=== PATIENT | male | born 1990 | race Caucasian/White ===

== ENCOUNTER 2023-06-27 09:08 | Outpatient (OUT) | payer BC, SELFPAY ==
[2023-06-27 09:47] LABS: Basophils Absolute Auto 0.1 10^3/uL (0.0-0.1); Basophils Percent Auto 1.1 % (0.2-2.0); Eosinophils Absolute Auto 0.1 10^3/uL (0.0-0.7); Eosinophils Percent Auto 1.8 % (0.9-7.0); Hematocrit 41.1 % (42.0-54.0); Hemoglobin 13.2 g/dL (14.0-18.0); Immature Granulocytes Abs Auto 0.02 10^3/uL (0.00-0.03); Immature Granulocytes Pct Auto 0.4 % (0.0-0.5); Lymphocytes Absolute Auto 1.6 10^3/uL (1.2-3.8); Lymphocytes Percent Auto 28.9 % (20.5-60.0); Mean Corpuscular HGB Conc 32.1 g/dL (29.9-35.2); Mean Corpuscular Hemoglobin 26.5 pg (25.9-34.0); Mean Corpuscular Volume 82.4 fL (80.0-94.0); Mean Platelet Volume 10.3 fL (9.5-13.5); Monocytes Absolute Auto 0.6 10^3/uL (0.3-0.8); Neutrophils Absolute Auto 3.2 10^3/uL (1.4-6.5); Neutrophils Percent Auto 57.8 % (43.0-75.0); Platelet Count 316 10^3/uL (150-450); Red Blood Count 4.99 10^6/uL (4.70-6.10); Red Cell Distribution Width 14.1 % (11.0-15.0); White Blood Count 5.5 10^3/uL (4.0-11.0)
[2023-06-27 10:30] LABS: Estimated Average Glucose 120 mg/dL; Glycohemoglobin A1C 5.8 % (4.5-6.2)
[2023-06-27 11:50] LABS: Alanine Aminotransferase 38 U/L (16-63); Albumin Level 3.9 g/dL (3.4-5.0); Alkaline Phosphatase 67 U/L (46-116); Anion Gap 14.1; Aspartate Amino Transferase 18 U/L (15-37); BUN Creatinine Ratio 14.7; Bilirubin Direct 0.1 mg/dL (0.0-0.2); Bilirubin Total 0.5 mg/dL (0.2-1.0); Calcium 9.5 mg/dL (8.5-10.1); Carbon Dioxide 26.4 mmol/L (21.0-32.0); Chloride 105 mmol/L (98-107); Chol HDL Ratio 5.7; Cholesterol 228 mg/dL (<=200); Estimated GFR (African America >60 (>=60); Estimated GFR (Non-African Ame >60 (>=60); Globulin 3.8 g/dL; Glucose 100 mg/dL (74-106); HDL Cholesterol 40 mg/dL (40-60); Potassium 4.5 mmol/L (3.5-5.1); Sodium 141 mmol/L (136-145); Thyroid Stimulating Hormone 1.138 uIU/mL (0.358-3.740); Total Protein 7.7 g/dL (6.4-8.2); Triglycerides 116 mg/dL (<=150); VLDL CHOLESTEROL 23.2 mg/dL
== END 2023-06-27 09:09 | disposition home or self-care (01) ==
PROVIDERS: PCP Family Medicine; Visit Provider Family Medicine
DX: Z00.00 Encounter for general adult medical examination without abnormal findings (principal)
CPT/HCPCS: 36415; 80048; 80061; 80076; 83036; 84443; 85025

== ENCOUNTER 2024-05-04 08:05 | Outpatient (OUT) | payer BC, SELFPAY ==
--- OUTSIDE RECORDS SUMMARY | 2024-05-04 08:12 | XMS_ITS | CCD ---
Author Organization [facility] Care Team Providers Care 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 Name Role Phone JENIFER, DR REYNAGA Admitting Unavailable TIMMIS, DR REYNAGA Attending Unavailable NADEREGely, DR MEHUL Pereira Primary Care Unavailable TIMMIS, DR REYNAGA Consulting Unavailable WEST, DR JUAN Bradley Consulting Unavailable TIMMIS, DR REYNAGA Admitting Unavailable TIMMIS, DR REYNAGA Attending Unavailable NADERER, DR MEHUL Pereira Primary Care Unavailable TIMMIS, DR REYNAGA Consulting Unavailable GRILLIVanna, DR OLINDA Galicia Admitting Unavailyuly e MIGUELITO, DR OLINDA Galicia Attending Unavailyuly ROSAS, DR MEHUL Pereira Primary Care Unavailable GRILLIVanna, DR OLINDA Galicia Consulting Unavailabl e AGUBOSIM, [place] Consulting Unavailable DORKOSKIE, JORGE Consulting Unavailable TIMMIS, DR REYNAGA Admitting Unavailable TIMMIS, DR REYNAGA Attending Unavailable NADEREGely, DR MEHUL Pereira Primary Care Unavailable TIMMIS, DR REYNAGA Consulting Unavailable HI, JASEN Consulting Unavailable NORAH, NITHYA Consulting Unavailable FILUTZE, LINSEY Consulting Unavailable MIGUELITO, DR OLINDA Galicia Admitting Unavailyuly e MIGUELITO, DR OLINDA Galicia Attending Unavailyuly ROSAS, DR MEHUL Pereira Primary Care Unavailable RALPH, MEHUL Attending Unavailable RALPH, MEHUL Attending Unavailable Mehul Rosas MD Primary Care Provider Mehul Rosas Primary Care Unavailable Jag Nolasco Attending Unavailable Jag Nolasco Admitting Unavailable Medications Current Medications Medication Drug Class(es) Dates Sig (Normalized) Sig (Original) cholecalciferol 0.05 mg oral tablet (6 sources) Vitamin D Start: 04-09-2023 take 1 tablet by mouth once daily cholecalciferol (Vitamin D-3) 50 MCG (1999) tablet Indications: Vitamin D deficiency TAKE 1 TABLET BY MOUTH EVERY DAY 90 tablet 5 04/09/2023 Active dicyclomine hydrochloride 20 mg oral tablet (8 sources) Anticholinergic Start: 05-04-2024 dicyclomine (Bentyl) 20 MG tablet Indications: Irritable bowel syndrome with diarrhea Take 1 tablet (20 mg) by mouth in the morning and 1 tablet (20 mg) at noon and 1 tablet (20 mg) in the evening and 1 tablet (20 mg) before bedtime. Take before meals. 120 tablet 5 05/04/2024 Active Start: 05-04-2024 dicyclomine (B entyl) 20 MG tablet Indications: Irritable bowel syndrome with diarrhea Take 1 tablet (20 mg) by mouth in the morning and 1 tablet (20 mg) at noon and 1 tablet (20 mg) in the evening and 1 tablet (20 mg) before bedtime. Take before meals. 120 tablet 5 05/04/2024 Active End: 05-04-2024 dicyclomine (Bentyl) 20 MG t ablet Take 20 mg by mouth in the morning and 20 mg at noon and 20 mg in the evening and 20 mg before bedtime. Take before meals. 05/04/2024 Discontinued (Reorder) fluticasone propionate 0.05 mg/actuat metered dose nasal spray (6 sources) Corticosteroid take 2 spray(s) nasal route in the morning fluticasone (Flonase) 50 MCG/ACT nasal spray Administer 2 sprays into each nostril in the morning. Shake gently. Before first use, prime pump. After use, clean tip and replace cap.. Active lisinopril 20 mg oral tablet (6 sources) Angiotensin Converting Enzyme Inhibitor Start: 04-28-19 24 take 1 tablet by mouth twice daily lisinopril 20 MG tablet Indications: Essential (primary) hypertension (CMS/HCC) , Benign essential hypertension (CMS/HCC) TAKE 1 TABLET BY MOUTH TWICE A DAY 180 tablet 3 04/28/2023 Active omeprazole 40 mg delayed release oral capsule (6 sources) Proton Pump Inhibitor Start: 07-06-19 take 1 capsule by mouth twice daily omeprazole (PriLOSEC) [address] capsule Indications: Irritable bowel syndrome with diarrhea TAKE 1 CAPSULE BY MOUTH TWICE A DAY 180 capsule 3 07/06/2023 Active tiZANidine 4 mg oral tablet (6 sources) Central alpha-2 Adrenergic Agonist Start: 02-21-20 24 take 1 tablet by mouth every six hours as needed tiZANidine (Zanaflex) 4 MG tablet Take 4 mg by mouth every 6 (six) hours if needed 04/22/2023 Active Problems Active Problems Problem Classification Problem Date Documented Da te Episodic/Chronic Disorders of lipid metabolism (6 sources) Dyslipidemia; Translations: [Hyperlipidemia, unspecified] Onset: 05-18-2023 05-18-2023 Chronic Esophageal disorders (13 sources) Gastro-esophageal reflux disease without esophagitis; Translations: [Banuelos's esophagus without dysplasia] Onset: 09-18-2021 Chronic Essential hypertension (11 sources) Essential (primary) hypertension; Translations: [Benign essential hypertension] Onset: 04-08-2022 05-18-2023 Chronic Gastritis and duodenitis (1 source) Unspecified chronic gastritis without bleeding; Translations: [UNS CHRONIC GASTRITIS W/O BLEEDING] Onset: 09-23-2021 Chronic Nutritional deficiencies (6 sources) Vitamin D deficiency; Translations: [Vitamin D deficiency, unspecified] Onset: 05-18-2023 05-18-2023 Chronic Other gastrointestinal disorders (1 source) Irritable bowel syndrome without diarrhea; Translations: [IRRITABLE BOWEL SYND W/O DIARRHEA] Onset: 09-23-2021 Chronic Other gastrointestinal disorders (10 sources) Irritable bowel syndrome with diarrhea; Translations: [Irritable bowel syndrome with diarrhea] Onset: 05-18-2023 05-18-2023 Chronic Other male genital disorders (1 source) Male infertility, unspecified; Translations: [Male infertility, unspecified] Onset: 02-19-2024 Episodic Other upper respiratory disease (8 sources) Allergic rhinitis due to pollen; Translations: [Allergic rhinitis due to pollen] Onset: 05-18-2023 05-18-2023 Chronic Other upper respiratory disease (5 sources) Deviated nasal septum; Translations: [DEVIATED NASAL SEPTUM] Onset: 03-31-2022 Episodic Other upper respiratory disease (1 source) Hypertrophy of nasal turbinates; Translations: [HYPERTROPHY OF NASAL TURBINATES] Onset: 04-08-2022 Episodic Other upper respiratory disease (1 source) Cyst and mucocele of nose and nasal sinus; Translations: [CYST AND MUCOCELE NOSE AND NASAL SINUS] Onset: 04-08-2022 Episodic Other upper respiratory infections (1 source) Chronic sinusitis, unspecified; Translations: [CHRONIC SINUSITIS UNSPECIFIED] Onset: 04-08-2022 Chronic Residual codes; unclassified (1 source) Obstructive sleep apnea (adult) (pediatric); Translations: [OBSTRUCTIVE SLEEP APNEA] Onset: 04-08-2022 Chronic Residual codes; unclassified (8 sources) Obstructive sleep apnea syndrome; Translations: [Obstructive sleep apnea (adult) (pediatric)] Onset: 05-18-2023 05-18-2023 Chronic Unclassified (1 source) PERSONAL HISTORY OF COVID-19; Translations: [PERSONAL HISTORY OF COVID-19] Onset: 04-08-2022 Unclassified (1 source) CONTACT W/AND (SUSP) EXPOS COVID-19; Translations: [CONTACT W/AND (SUSP) EXPOS COVID-19] Onset: 03-31-2022 Past or Other Problems Problem Classification Problem Date Documented Da te Episodic/Chronic Other aftercare (1 source) Other long-term (current) drug therapy; Translations: [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] Onset: 09-23-2021 Episodic Other non-traumatic joint disorders (6 sources) Pain in right knee; Translations: [Pain in joint, lower leg] Onset: 05-18-2023 05-18-2023 Episodic Other upper respiratory disease (4 sources) Other specified disorders of nose and nasal sinuses; Translations: [OTH SPEC D/O NOSE NASAL SINUSES] Onset: 11-30-2021 Episodic Other upper respiratory infections (6 sources) Acute pansinusitis; Translations: [Acute pansinusitis, unspecified] Onset: 05-18-2023 Resolved: 11-04-2023 05-18-2023 Episodic Screening and history of mental health and substance abuse codes (6 sources) Patient encounter status; Translations: [Encounter for autism screening] Onset: 05-18-2023 05-18-2023 Episodic Results Test Name Value Interpretation Reference Range Facil ity Semen Analysis, Fertilityon 02-19-2024 Debris/Round Cells None Normal [facility] Comment on above: Order Comment: Eric d of Collection:: Masturbation Has the patient had a vasectomy?: N Type of Specimen Container:: Sterile Container Abstinence Period:: 2 DAYS Kept at body temperature?: Y Any Collection or Transport Problems?: N Performed By: #### S EMCOMP #### [facility] [address] [place] [address] [place] Immotile Sperm 43 % Normal [facility] Comment on above: Order Comment: Metho d of Collection:: Masturbation Has the patient had a vasectomy?: N Type of Specimen Container:: Sterile Container Abstinence Period:: 2 DAYS Kept at body temperature?: Y Any Collection or Transport Problems?: N Performed By: #### S EMCOMP #### [facility] [address] [place] [address] [place] Non-Progression Sperm Motili 8 % Normal [facility] Comment on above: Order Comment: Metho d of Collection:: Masturbation Has the patient had a vasectomy?: N Type of Specimen Container:: Sterile Container Abstinence Period:: 2 DAYS Kept at body temperature?: Y Any Collection or Transport Problems?: N Performed By: #### S EMCOMP #### [facility] [address] Normal Sperm Morphology 10.0 % Normal >=4.0 [facility] Comment on above: Order Comment: Metho d of Collection:: Masturbation Has the patient had a vasectomy?: N Type of Specimen Container:: Sterile Container Abstinence Period:: 2 DAYS Kept at body temperature?: Y Any Collection or Transport Problems?: N Performed By: #### S EMCOMP #### [place] [address] [place] Rapid Progression Sperm Motili 49 % Normal [facility] Comment on above: Order Comment: Metho d of Collection:: Masturbation Has the patient had a vasectomy?: N Type of Specimen Container:: Sterile Container Abstinence Period:: 2 DAYS Kept at body temperature?: Y Any Collection or Transport Problems?: N Performed By: #### S EMCOMP #### [facility] [address] [place] [address] [place] Semen Appearance Normal Normal Normal [facility] Comment on above: Order Comment: Metho d of Collection:: Masturbation Has the patient had a vasectomy?: N Type of Specimen Container:: Sterile Container Abstinence Period:: 2 DAYS Kept at body temperature?: Y Any Collection or Transport Problems?: N Performed By: #### S EMCOMP #### [address] Semen Comment . Normal [facility] Comment on above: Order Comment: Metho d of Collection:: Masturbation Has the patient had a vasectomy?: N Type of Specimen Container:: Sterile Container Abstinence Period:: 2 DAYS Kept at body temperature?: Y Any Collection or Transport Problems?: N Result Comment: No A bnormal specimen characteristics noted. PERFORMED BY: [place] [address] PATHOLOGIST PROCUREMENT DIRECTOR PURVI SWEET M.D. Performed By: #### S EMCOMP #### [address] Semen Liquefaction Normal Normal <=60 min [facility] Comment on above: Order Comment: Metho d of Collection:: Masturbation Has the patient had a vasectomy?: N Type of Specimen Container:: Sterile Container Abstinence Period:: 2 DAYS Kept at body temperature?: Y Any Collection or Transport Problems?: N Performed By: #### S EMCOMP #### [address] Semen pH 8.0 Normal >=7.2 [facility] Comment on above: Order Comment: Metho d of Collection:: Masturbation Has the patient had a vasectomy?: N Type of Specimen Container:: Sterile Container Abstinence Period:: 2 DAYS Kept at body temperature?: Y Any Collection or Transport Problems?: N Performed By: #### S EMCOMP #### [address] Semen Viscosity Normal Normal Normal [facility] Comment on above: Order Comment: Metho d of Collection:: Masturbation Has the patient had a vasectomy?: N Type of Specimen Container:: Sterile Container Abstinence Period:: 2 DAYS Kept at body temperature?: Y Any Collection or Transport Problems?: N Performed By: #### S EMCOMP #### [address] Semen Volume 3.0 mL Normal >=1.5 [facility] Comment on above: Order Comment: Metho d of Collection:: Masturbation Has the patient had a vasectomy?: N Type of Specimen Container:: Sterile Container Abstinence Period:: 2 DAYS Kept at body temperature?: Y Any Collection or Transport Problems?: N Performed By: #### S EMCOMP #### [facility] [address] Sperm Concentration 65.0 Normal >=15 [facility] Comment on above: Order Comment: Metho d of Collection:: Masturbation Has the patient had a vasectomy?: N Type of Specimen Container:: Sterile Container Abstinence Period:: 2 DAYS Kept at body temperature?: Y Any Collection or Transport Problems?: N Performed By: #### S EMCOMP #### [address] Total Motility (CA+EPIC WILLOW SPECIALIST) 57.0 % Normal >=40 (CA+EPIC WILLOW SPECIALIST) [facility] Comment on above: Order Comment: Metho d of Collection:: Masturbation Has the patient had a vasectomy?: N Type of Specimen Container:: Sterile Container Abstinence Period:: 2 DAYS Kept at body temperature?: Y Any Collection or Transport Problems?: N Performed By: #### S EMCOMP #### [address] WBC Concent, Semen <1.0 Normal <1.0 [facility] Comment on above: Order Comment: Metho d of Collection:: Masturbation Has the patient had a vasectomy?: N Type of Specimen Container:: Sterile Container Abstinence Period:: 2 DAYS Kept at body temperature?: Y Any Collection or Transport Problems?: N Performed By: #### S EMCOMP #### [facility] [address] [place] [address] [place] CBC AUTO DIFFon 03-28-2022 BASO # 0.1 103/ul Normal 0.0-0.1 [facility] Comment on above: Performed By: #### C BC #### [facility] [address] [address] [address] Luz Marina Obregon Basophils/100 WBC (Bld) 0.6 % Normal 0.2-2.0 [facility] Comment on above: Performed By: #### C BC #### [facility] [address] [place] [address] Dr. Luz Marina Obregon EO # 0.1 103/ul Normal 0.0-0.7 [facility] Comment on above: Performed By: #### C BC #### [facility] [address] [place] [address] Dr. Luz Marina Obregon Eosinophils/100 WBC (Bld) 1.3 % Normal 0.9-7.0 [facility] Comment on above: Performed By: #### C BC #### [facility] [address] [place] [address] Dr. Luz Marina Obregon Erythrocyte distribution width (RBC) [Ratio] 13.1 % Normal 11.0-15.0 [facility] Comment on above: Performed By: #### C BC #### [facility] [address] [place] [address] Dr. Luz Marina Obregon Hematocrit (Bld) [Volume fraction] 40.1 % Critically low 42.0-54.0 [facility] Comment on above: Performed By: #### C BC #### [facility] [address] [place] [address] Dr. Luz Marina Obregon Hemoglobin (Bld) [Mass/Vol] 14.5 g/dL Normal 14.0-18.0 [facility] Comment on above: Performed By: #### C BC #### [facility] [address] [place] [address] Dr. Luz Marina Obregon IG # 0.03 10e3/ul Normal 0.00-0.03 [facility] Comment on above: Performed By: #### C BC #### [facility] [address] [place] [address] Dr. Luz Marina Obregon IG % 0.4 % Normal 0.0-0.5 [facility] Comment on above: Performed By: #### C BC #### [facility] [address] [place] [address] Dr. Luz Marina Obregon LYMPH # 1.9 103/ul Normal 1.2-3.8 [facility] Comment on above: Performed By: #### C BC #### [facility] [address] [place] [address] Dr. Luz Marina Obregon Lymphocytes/100 WBC (Bld) 24.9 % Normal 20.5-60.0 [facility] Comment on above: Performed By: #### C BC #### [facility] [address] [place] [address] Dr. Luz Marina Obregon MANUAL DIFF REQ NO Normal [facility] Comment on above: Performed By: #### C BC #### [facility] [address] [place] [address] Dr. Luz Marina Obregon MCH (RBC) [Entitic mass] 28.4 pg Normal 25.9-34.0 [facility] Comment on above: Performed By: #### C BC #### [facility] [address] [place] [address] Dr. Luz Marina Obregon MCHC (RBC) [Mass/Vol] 36.2 g/dL Critically high 29.9-35.2 [facility] Comment on above: Performed By: #### C BC #### [facility] [address] [place] [address] Dr. Luz Marina Obregon MCV (RBC) [Entitic vol] 78.5 fL Critically low 80.0-94.0 [facility] Comment on above: Performed By: #### C BC #### [facility] [address] [place] [address] Dr. Luz Marina Obregon MONO # 0.6 103/ul Normal 0.3-0.8 [facility] Comment on above: Performed By: #### C BC #### [facility] [address] [place] [address] Dr. Luz Marina Obregon Monocytes/100 WBC (Bld) 7.8 % Normal 1.7-12.0 [facility] Comment on above: Performed By: #### C BC #### [facility] [address] [place] [address] Dr. Luz Marina Obregon NEUT # 5.0 103/ul Normal 1.4-6.5 [facility] Comment on above: Performed By: #### C BC #### [facility] [address] [address] [address] Luz Marina Obregon Neutrophils/100 WBC (Bld) 65.0 % Normal 43.0-75.0 [facility] Comment on above: Performed By: #### C BC #### [facility] [address] [place] [address] Dr. Luz Mraina Obregon Platelet mean volume (Bld) [Entitic vol] 9.5 fL Normal 9.5-13.5 [facility] Comment on above: Performed By: #### C BC #### [facility] [address] [place] [address] Dr. Luz Marina Obregon PLT 284 103/ul Normal 150-450 [facility] Comment on above: Performed By: #### C BC #### [facility] [address] [place] [address] Dr. Luz Marina Obregon RBC 5.11 106/ul Normal 4.70-6.10 [facility] Comment on above: Performed By: #### C BC #### [facility] [address] [place] [address] Dr. Luz Marina Obregon WBC 7.7 103/ul Normal 4.0-11.0 [facility] Comment on above: Performed By: #### C BC #### [facility] [address] [place] [address] Dr. Luz Marina Obregon Covid-19 PCR (CVDTB)on 03-03 SARS-CoV-2 (COVID-19) RNA MARY KAY+probe Ql (Unsp spec) Not detected Normal NOT DETECTED [facility] Comment on above: Result Comment: This test is not yet approved or cleared by the [place] FDA. When there are no FDA-approved or cleared tests available, and other criteria are met, FDA can make tests available under an emergency access mechanism called an Emergency Use Authorization (EUA). The EUA for this test is supported by the [place] of Health and Human Service's (HHS's) declaration that circumstances exist to justify the emergency use of in vitro diagnostics for the detection and/or diagnosis of the virus that causes COVID-19. This EUA will remain in effect (meaning this test can be used) for the duration of the COVID-19 declaration justifying emergency of IVDs, unless it is terminated or revoked by FDA (after which the test may no longer be used). When diagnostic testing is negative, the possibility of a false negative should be considered in the context of a patient's recent exposures and the presence of clinical signs and symptoms consistent with SARS-CoV-2. Performed By: #### C VDTBH #### [facility] [address] [place] [address] Dr. Luz Marina Obregon PROTIMEon 03-28-2022 INR Coag (PPP) [Relative time] 0.95 {INR} Normal [facility] Comment on above: Performed By: #### P TT, PT #### [facility] [address] [place] [address] Dr. Luz Marina Obregon INR GUIDELINES SEE BELOW Normal [facility] Comment on above: Result Comment: SHERLEY RED INR: 2.0 - 3.0 CONDITIONS NOT LISTED BELOW 2.5 - 3.5 FOR PROSTHETIC HEART VALVE REPLACEMENT 2.5 - 3.5 RECURRENT THROMBOSIS Performed By: #### P TT, PT #### [facility] [address] [place] [address] Dr. Luz Marina Obregon PT Coag (PPP) [Time] 10.1 s Normal 9.0-11.6 [facility] Comment on above: Performed By: #### P TT, PT #### [facility] [address] [place] [address] Dr. Luz Marina Obregon PTTon 03-28-2022 aPTT Coag (Bld) [Time] 29.9 s Normal 22.3-36.2 [facility] Comment on above: Performed By: #### P TT, PT #### [facility] [address] [place] [address] [address] SINUSES WO CONon 12-02-19 CT SINUSES WO CON EXAMINATION: CT SINUSES WO CON HISTORY: Disorder of the nose COMPARISON: No relevant comparison available. TECHNIQUE: Axial and Coronal CT images were created without IV contrast. Dose reduction techniques were achieved by using automated exposure control and/or adjustment of mA and/or kV according to patient size and/or use of iterative reconstruction technique. FINDINGS: MAXILLARY SINUSES: 2.9 x 2.1 x 4.1 cm lobular soft tissue in the inferior right maxillary sinus and 1.9 x 1.8 x 3.3 cm lobular soft tissue in the inferior left maxillary sinus. ETHMOID SINUSES: No significant mucosal thickening or fluid. Fovea ethmoidali and lamina papyracea are symmetric and intact. SPHENOID SINUSES: No significant mucosal thickening or fluid. Sphenoethmoidal recesses are patent. No bony dehiscence. FRONTAL SINUSES: No significant mucosal thickening or fluid. Frontal recesses are patent. NASAL FOSSA: 4 mm rightward deviation of the nasal septum. No isabel bullosa or paradoxical turbinates are identified. OTHER: Negative. Limited views of the skull base and orbits are unremarkable. IMPRESSION: Bilateral inferior maxillary lobular soft tissue lesions, mucous retention cysts are suspected. This does not result in occlusion of the ostiomeatal units. 4 mm rightward deviation of the nasal septum Electronically authenticated by: JUAN MIRANDA Date: 2021-12-01 11:41 Normal [facility] H PYLORI TISSUEon 09-18-2021 H PYL TISSUE, UREASE Negative Normal NEGATIVE [facility] Comment on above: Performed By: #### H PYLT #### [facility] [address] [place] [address] Dr. Luz Marina Obregon Vital Signs Date Time Vital Sign Value Performing Clinician Faci lity 05-04-2024 07:140500 Body height 182.9 cm Mehul Rosas MD Work Phone: [facility] 05-04-2024 07:14-0500 Body mass index (BMI) [Ratio] 34.99 kg/m2 Mehul Rosas MD Work Phone: [facility] 05-04-2024 07:14-0500 Body temperature 97.5 [degF] Mehul Rosas MD Work Phone: [facility] 05-04-2024 07:14-0500 Body weight 117.03 kg Mehul Rosas MD Work Phone: [facility] 05-04-2024 07:14-0500 Diastolic blood pressure 78 mm[Hg] Mehul Rosas MD Work Phone: [facility] 05-04-2024 07:14-0500 Heart rate 105 /min Mehul Rosas MD Work Phone: [facility] 05-04-2024 07:14-0500 Respiratory rate 18 /min Mehul Rosas MD Work Phone: [facility] 05-04-2024 07:14-0500 SaO2% (BldA) [Mass fraction] 97 % Mehul Rosas MD Work Phone: [facility] 05-04-2024 07:14-0500 Systolic blood pressure 134 mm[Hg] Mehul Rosas MD Work Phone: [facility] 11-04-2023 07:51-0400 Body height 182.9 cm Mehul Rosas MD Work Phone: [facility] 11-04-2023 07:51-0400 Body mass index (BMI) [Ratio] 35.13 kg/m2 Mehul Rosas MD Work Phone: [facility] 11-04-2023 07:51-0400 Body temperature 97.5 [degF] Mehul Rosas MD Work Phone: [facility] 11-04-2023 07:51-0400 Body weight 117.48 kg Mehul Rosas MD Work Phone: [facility] 11-04-2023 07:51-0400 Diastolic blood pressure 78 mm[Hg] Mehul Rosas MD Work Phone: [facility] 11-04-2023 07:51-0400 Heart rate 85 /min Mehul Rosas MD Work Phone: [facility] 11-04-2023 07:51-0400 Respiratory rate 18 /min Mehul Rosas MD Work Phone: [facility] 11-04-2023 07:51-0400 SaO2% (BldA) [Mass fraction] 96 % Mehul Rosas MD Work Phone: [facility] 11-04-2023 07:51-0400 Systolic blood pressure 130 mm[Hg] Mehul Rosas MD Work Phone: [facility] Encounters Encounter Date Encounter Type Care Provider Facility Start: 05-04-2024 End: 05-04-2024 Bamboo flowsheet Mehul Rosas MD Work Phone: [facility] Start: 05-04-2024 End: 05-04-2024 Bamboo flowsheet Mehul Rosas MD Work Phone: [facility] Start: 05-04-2024 End: 05-04-2024 Patient encounter procedure Mehul Rosas MD Work Phone: [facility] Work Phone: Start: 05-04-2024 End: 05-04-2024 Periodic preventive med est patient 18-39 yrs Mehul Rosas MD Work Phone: [facility] Comment on above: Annual physical exam (Primary Dx); Essential hypertension, benign (CMS/HCC); Irritable bowel syndrome with diarrhea Start: 02-19-2024 End: 02-19-2024 ambulatory Mehul Rosas Facility:[facility] Start: 11-04-2023 End: 11-04-2023 Bamboo flowsheet Mehul Rosas MD Work Phone: [facility] Start: 11-04-2023 End: 11-04-2023 Bamboo flowsheet Mehul Rosas MD Work Phone: [facility] Start: 11-04-2023 End: 11-04-2023 Office outpatient visit 25 minutes Mehul Rosas MD Work Phone: [facility] Comment on above: Essential hypertensi on, benign (CMS/HCC) (Primary Dx); Irritable bowel syndrome with diarrhea; Banuelos's esophagus without dysplasia; Seasonal allergic rhinitis due to pollen; Obstructive sleep apnea Start: 11-04-2023 End: 11-04-2023 ambulatory MEHUL ROSAS Not Available Start: 05-18-2023 End: 05-18-2023 ambulatory MEHUL ROSAS Not Available Start: 05-18-2023 Patient encounter procedure Mehul Rosas MD Work Phone: [facility] Start: 04-01-2022 End: 04-01-[address] LINH FERRER Facility:[facility] Start: 03-31-2022 Encounter for preprocedural laboratory examination DR LINH FERRER [facility] Start: 03-28-2022 End: 03-29-[address] LINH FERRER Facility:[facility] Start: 03-28-2022 End: 03-29-2022 Encounter for preprocedural laboratory examination DR LINH FERRER Facility:[facility] Start: 11-30-2021 End: 12-01-[address] LINH FERRER Facility:[facility] Start: 09-18-2021 End: 09-18-[address] OLINDA FARLEY Facility:[facility] Start: 09-14-[address] OLINDA FARLEY Fa cility:[facility] Plan of Treatment Date Care Activity Detail Author Start: 11-04-2024 End: 11-04-2024 Patient encounter procedure 11/04/2024 9:00 AM EDT Office Visit [facility] [address] [place] [phone] Mehul Rosas MD [address] [place] [id number] [facility] Start: 05-04-2024 End: 05-04-2025 Basic metabolic 1998 panel - Serum or Plasma Basic metabolic panel Lab Routine Annual physical exam Expected: 05/04/2024 (Approximate), Expires: 05/04/2025 [facility] Comment on above: Expected: 05/04/2024 (Approximate), Expires: 05/04/2025 Start: 05-04-2024 End: 05-04-2025 CBC W Auto Differential panel - Blood CBC and differential Lab Routine Annual physical exam Expected: 05/04/2024 (Approximate), Expires: 05/04/2025 [facility] Comment on above: Expected: 05/04/2024 (Approximate), Expires: 05/04/2025 Start: 05-04-2024 End: 05-04-2025 Hemoglobin A1c/Hemoglobin.total in Blood Hemoglobin A1c Lab Routine Annual physical exam Expected: 05/04/2024 (Approximate), Expires: 05/04/2025 [facility] Work Phone: Comment on above: Expected: 05/04/2024 (Approximate), Expires: 05/04/2025 Start: 05-04-2024 End: 05-04-2025 Hepatic function 2000 panel - Serum or Plasma Hepatic function panel Lab Routine Annual physical exam Expected: 05/04/2024 (Approximate), Expires: 05/04/2025 [facility] Comment on above: Expected: 05/04/2024 (Approximate), Expires: 05/04/2025 Start: 05-04-2024 End: 05-04-2025 Lipid 1996 panel - Serum or Plasma Lipid panel Lab Routine Annual physical exam Expected: 05/04/2024 (Approximate), Expires: 05/04/2025 [facility] Comment on above: Expected: 05/04/2024 (Approximate), Expires: 05/04/2025 Start: 05-04-2024 End: 05-04-2025 Thyrotropin [Units/volume] in Serum or Plasma TSH Lab Routine Annual physical exam Expected: 05/04/2024 (Approximate), Expires: 05/04/2025 [facility] Comment on above: Expected: 05/04/2024 (Approximate), Expires: 05/04/2025 Start: 05-04-2024 End: 05-04-2024 Patient encounter procedure 05/04/2024 7:00 AM EST Office Visit [facility] [address] [place] [address] Mehul Rosas MD [address] [place] [id number] [facility] Start: 11-04-2023 End: 11-04-2023 Patient encounter procedure 11/04/2023 7:45 AM EDT Office Visit [facility] [address] [place] [address] Mehul Rosas MD [address] [place] [address] Arrived [facility] Comment on above: Arrived Start: 11-01-2023 Influenza vaccination Influenza Vacc ine (#1) [facility] Immunizations Immunization Date Immunization Notes Care Provider Fa cility 12-19-2022 Influenza, injectabl e, Madin Paullina Canine Kidney, preservative free, quadrivalent Mehul Rosas MD Work Phone: [facility] 12-19-2022 influenza virus vacc ine, unspecified formulation Mehul Rosas MD Work Phone: [facility] Payers Date Payer Category Payer Self-pay 2022 [facility] Blue Shield [id number] 2022 Unknown BCBS BCBS xxxxxx [id number] 2022-Present [phone] [address] [place] [address] [id number] 1990 Unknown [id number] 1990 Unknown [id number] 1990 Unknown [id number] 1990 Unknown [id number] 1990 Unknown [id number] [id number] 1990 Unknown [id number] [id number] 1990 Unknown [id number] 1959 Unknown [id number] Unknown [id number] Social History Date Type Detail Facility Start: 05-18-2023 Tobacco smoking status NHIS Never sm oked tobacco [facility] Start: 05-18-2023 Tobacco use and exposure Smoke less tobacco non-user [facility] Start: 05-17-2023 End: 05-04-2024 History of Social function [facility] Start: 05-17-2023 End: 05-04-2024 Social connection and isolation panel [facility] Do you belong to any clubs or organizations such as christian groups, unions, fraternal or athletic groups, or school groups? Yes [facility] Are you now , , , , never or living with a partner? [facility] How often to you hav e a drink containing alcohol? Never [facility] How many standard dr inks containing alcohol do you have on a typical day? Patient does not drink [facility] Do you feel stress - tense, restless, nervous, or anxious, or unable to sleep at night because your mind is troubled all the time - these days [OSQ] Only a little [facility] (I/We) worried wheth er (my/our) food would run out before (I/we) got money to buy more. Never true [facility] In the past 12 month s, was there a time when you were not able to pay the mortgage or rent on time? No [facility] Start: 1990 Sex assigned at Not on file [facility] History of Present illness Narrative 05-04-2024 Mehul Rosas MD - 05/04/2024 7:32 AM Ale Rosas MD - 05/04/2024 7:32 AM Ale Rosas MD - 05/04/2024 7:00 AM EST Note Date & Type Note Facility 05-04-2024 History of Presen t illness Narrative Associated Problem(s): Essential hypertension, benign (CMS/HCC) BP controlled and monitor PRN. Associated Problem(s): Annual physical exam Due for labs. Discussed proper diet and regular aerobic exercise. Need aerobic exercise 5-6 days a week for 30 minutes at a time. Smaller portions and limit total calories. Colonoscopy after age 45. Tetanus every 10 years. Advised not to smoke. Images from the original note were not included. Subjective Patient ID: Amor Barrera is a 33 y.o. male who presents for Follow-up. Presents for annual PE. Patient feels well today. Weight unchanged over the past year. Recently resumed activity and returned to the gym. Tries to stay active and exercise several days a week. Tries to watch diet and eat healthy. Increased fruits and vegetables. Smaller portions and limits snacking. Tries to limit total daily calories. Due for labs. Checking BP PRN and typically controlled. BP normal today. Taking medication daily and tolerating without side effects. Review of Systems Constitutional: Negative for fatigue. Respiratory: Negative for cough, shortness of breath and wheezing. Cardiovascular: Negative for chest pain and palpitations. Gastrointestinal: Negative for abdominal pain, diarrhea, nausea and vomiting. Genitourinary: Negative for dysuria. Objective Physical Exam Constitutional: General: He is not in acute distress. Appearance: Normal appearance. HENT: Head: Normocephalic. Right Ear: Tympanic membrane and ear canal normal. Left Ear: Tympanic membrane and ear canal normal. Eyes: Extraocular Movements: Extraocular movements intact. Pupils: Pupils are equal, round, and reactive to light. Cardiovascular: Rate and Rhythm: Normal rate and regular rhythm. Heart sounds: No murmur heard. No friction rub. No gallop. Pulmonary: Breath sounds: Normal breath sounds. No wheezing, rhonchi or rales. Abdominal: General: Bowel sounds are normal. There is no distension. Palpations: Abdomen is soft. Tenderness: There is no abdominal tenderness. There is no guarding or rebound. Musculoskeletal: General: Normal range of motion. Left lower leg: No edema. Neurological: General: No focal deficit present. Mental Status: He is alert. Cranial Nerves: No cranial nerve deficit. Deep Tendon Reflexes: Reflexes normal. Assessment/Plan Problem List Items Addressed This Visit Essential hypertension, benign (CMS/HCC) BP controlled and monitor PRN. Irritable bowel syndrome with diarrhea Relevant Medications dicyclomine (Bentyl) 20 MG tablet Annual physical exam - Primary Due for labs. Discussed proper diet and regular aerobic exercise. Need aerobic exercise 5-6 days a week for 30 minutes at a time. Smaller portions and limit total calories. Colonoscopy after age 45. Tetanus every 10 years. Advised not to smoke. Relevant Orders Hemoglobin A1c Basic metabolic panel CBC and differential Lipid panel TSH Hepatic function panel documented in this encounter [facility] History of Present illness Narrative 11-04-2023 Mehul Rosas MD - 11/04/2023 8:27 AM Kirsten Rosas MD - 11/04/2023 8:27 AM Kirsten Rosas MD - 11/04/2023 8:27 AM Kirsten Rosas MD - 11/04/2023 8:26 AM EDT Note Date & Type Note Facility 11-04-2023 History of Presen t illness Narrative Associated Problem(s): Seasonal allergic rhinitis due to pollen Symptoms controlled with medication and continue. Associated Problem(s): Obstructive sleep apnea Sleeping well with CPAP and continue nightly. The patient is benefiting from PAP therapy. Associated Problem(s): Irritable bowel syndrome with diarrhea Occasional symptoms and use bentyl PRN. Avoid foods that trigger symptoms. Associated Problem(s): Essential hypertension, benign (CMS/HCC) BP controlled and monitor PRN. Associated Problem(s): Banuelos's esophagus without dysplasia Symptoms controlled with omeprazole and continue. Images from the original note were not included. Subjective Patient ID: Amor Barrera is a 33 y.o. male who presents for Follow-up (6m). Follow up HTN, IBS, GERD, and sinuses. Patient feels well today. Checking BP PRN and typically controlled. BP normal today. Taking medication daily and tolerating without side effects. IBS stable. Mild abdominal pain and cramping. Denies urgency for BM. Tries to avoid foods that trigger symptoms which has helped. Uses bentyl PRN and helps with cramping. GERD controlled with omeprazole. Denies epigastric pain or burning and not waking up with symptoms. Allergies controlled with medication. No congestion or rhinorrhea. No GR or sinus pressure. Ears not plugged or popping. GABRIELLA controlled with CPAP. Using machine nightly for entire time asleep, typically 6-8 hours. Sleeping well and not waking up as much during night. Rested in am and not as tired during day. Review of Systems Constitutional: Negative for fatigue. Respiratory: Negative for cough, shortness of breath and wheezing. Cardiovascular: Negative for chest pain and palpitations. Gastrointestinal: Negative for abdominal pain, diarrhea, nausea and vomiting. Genitourinary: Negative for dysuria. Objective Physical Exam Constitutional: General: He is not in acute distress. Appearance: Normal appearance. HENT: Head: Normocephalic. Right Ear: Tympanic membrane and ear canal normal. Left Ear: Tympanic membrane and ear canal normal. Eyes: Extraocular Movements: Extraocular movements intact. Pupils: Pupils are equal, round, and reactive to light. Cardiovascular: Rate and Rhythm: Normal rate and regular rhythm. Heart sounds: No murmur heard. No friction rub. No gallop. Pulmonary: Breath sounds: Normal breath sounds. No wheezing, rhonchi or rales. Abdominal: General: Bowel sounds are normal. There is no distension. Palpations: Abdomen is soft. Tenderness: There is no abdominal tenderness. There is no guarding or rebound. Musculoskeletal: Left lower leg: No edema. Neurological: Mental Status: He is alert. Assessment/Plan Problem List Items Addressed This Visit Banuelos's esophagus without dysplasia Symptoms controlled with omeprazole and continue. Essential hypertension, benign (CMS/HCC) - Primary BP controlled and monitor PRN. Seasonal allergic rhinitis due to pollen Symptoms controlled with medication and continue. Irritable bowel syndrome with diarrhea Occasional symptoms and use bentyl PRN. Avoid foods that trigger symptoms. Obstructive sleep apnea Sleeping well with CPAP and continue nightly. The patient is benefiting from PAP therapy. documented in this encounter [facility] Clinical Note 04-01-2022 Note Date & Type Note Facility 04-01-2022 Note OPERATIVE NOTE OPERATION DATE: 04/01/2022 PRIMARY CARE PHYSICIAN: Mehul Rosas M.D. SURGEON: Linh Ferrer M.D. PREOPERATIVE DIAGNOSIS: Deviated nasal septum and bilateral inferior turbinate hypertrophy. POSTOPERATIVE DIAGNOSIS: Deviated nasal septum and bilateral inferior turbinate hypertrophy. PROCEDURE: Septoplasty and bilateral inferior turbinate submucosal resection. ANESTHESIA: General endotracheal. COMPLICATIONS: None. FINDINGS: Deviated nasal septum to the right and bilateral left greater than right inferior turbinate hypertrophy. INDICATIONS: This 31-year-old man presented with bilateral nasal obstruction secondary to deviated septum and inferior turbinate hypertrophy that failed aggressive medical management. PROCEDURE: Patient identified in the holding area and taken back to the OR where he was placed in a supine position. After induction of general endotracheal anesthesia, the table was turned, the head elevated 20 degrees and the face draped in a sterile fashion. Afrin soaked pledgets were placed in each side of the nose and, after waiting adequate time for decongestion, the nose was copiously irrigated bilaterally. Attention was first turned to the inferior turbinate. The inferior turbinates were injected with lidocaine 1% with 1:100,000 epinephrine, and after waiting adequate time for hemostasis, attention was turned to the left inferior turbinate. A stab incision was made anteriorly and a 2.0 mm microdebrider blade was used to exenterate the submucosal tissues of the turbinate. The turbinate was then outfractured with a long nasal speculum. Attention was then turned to the right inferior turbinate and the same procedure performed. Attention was then turned to the septum and lidocaine 1% with 1:100,000 epinephrine injected into each side of the septum and floor of nose. After waiting adequate time for hemostasis, the left nose was approached with the nasal speculum. A left sided Jae incision was made and the mucoperichondrial and mucoperiosteal flap was elevated on the left side. The bony cartilaginous junction was then and the mucoperiosteal flap was elevated on the right. The bony septum was then removed with cutting and grabbing Robin forceps including a large septal spur. There was a large deflected piece of inferior cartilage which laid horizontally along the deflected premaxilla crest. This was removed after trimming it with a 15-blade knife, while preserving a greater than 1 cm anterior strut. The chisel was then used to incise the deflected premaxilla crest and this was removed with an ethmoid forcep. Once this was completed, there was still cartilaginous deviation of the septum and this cartilaginous septum was scored to allow it to lay more freely towards the midline. A greater than 1 cm dorsal and anterior strut was preserved to minimize the risk of losing tip support and dorsal support. Once this was accomplished, there was a markedly improved bilateral nasal airway. The nose and nasal septal flap were copiously irrigated. The Jae incision was closed with a single interrupted 5-0 chromic suture and bilateral ventilating Silastic splints were placed in the nose and sutured in place with a 2-0 nylon stitch. The patient tolerated the procedure well, and he was awakened and taken to the recovery room in good condition. [facility] Evaluation note Note Date & Type Note Facility Evaluation note Diagnosis Essential hypertension, benign (CMS/HCC)- Primary Essential hypertension, benign Irritable bowel syndrome with diarrhea Irritable bowel syndrome Banuelos's esophagus without dysplasia Seasonal allergic rhinitis due to pollen Obstructive sleep apnea Obstructive sleep apnea (adult) (pediatric) documented in this encounter [facility] Evaluation note Note Date & Type Note Facility Evaluation note Diagnosis Annual physical exam- Primary Routine general medical examination at a health care facility Essential hypertension, benign (CMS/HCC) Essential hypertension, benign Acute non-recurrent pansinusitis Encounter for screening for autism Essential hypertension, benign (CMS/HCC)- Primary Essential hypertension, benign Irritable bowel syndrome with diarrhea Irritable bowel syndrome Banuelos's esophagus without dysplasia Seasonal allergic rhinitis due to pollen Obstructive sleep apnea Obstructive sleep apnea (adult) (pediatric) Annual physical exam- Primary Routine general medical examination at a health care facility Essential hypertension, benign (CMS/HCC) Essential hypertension, benign Irritable bowel syndrome with diarrhea Irritable bowel syndrome documented in this encounter [facility] Summary Purpose Family History No Family History Records FoundNo Family History Records FoundNo Family History Records Found Advance Directives No Advanced Directives Records FoundNo Advanced Directives Records FoundNo Advanced Directives Records Found Additional Source Comments (unrecognized sect ion and content) No Status Records FoundNo Status Records FoundNo Status Records Found INFORMATION SOURCE (unrecogn ized section and content) DATE CREATED AUTHOR 04/08/2022 [facility] DATE CREATED AUTHOR AUTHOR'S ORGANIZ ATION 11/05/2023 [facility] EPIC DATE CREATED AUTHOR AUTHOR'S ORGANIZ ATION 02/25/2024 [facility] Care Teams (unrecognized sec tion and content) 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 Relationship 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 Start Date End Date Mehul Rosas MD [address] [place] [phone] PCP - General Family Medicine 04/06/23 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 Relationship Specialty Start Date End Date Mehul Rosas MD [address] [place] [phone] PCP - General Family Medicine 04/06/23 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 Relationship Specialty Start Date End Date Mehul Rosas MD [address] [place] [phone] PCP - General Family Medicine 04/06/23 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 Relationship Specialty Start Date End Date Mehul Rosas MD [address] [place] [phone] PCP - General Family Medicine 04/06/23 Reason for Visit (unrecogniz ed section and content) Reason Comments Follow-up 6m Reason Comments Follow-up FOR RECORDS PERTAINING TO PATIENTS WHO ARE OR HAVE BEEN ENROLLED IN A CHEMICAL DEPENDENCY/SUBSTANCEABUSE PROGRAM, SOME INFORMATION MAY BE OMITTED. This clinical summary was aggregated from multiple sources. Caution should be exercised in using it in the provision of clinical care. This summary normalizes information from multiple sources, and as a consequence, information in this document may materially change the coding, format and clinical context of patient data. In addition, data may be omitted in some cases. CLINICAL DECISIONS SHOULD BE BASED ON THE PRIMARY CLINICAL RECORDS. [facility] [employer]. provides no warranty or guarantee of the accuracy or completeness of information in this document.
[2024-05-04 08:45] LABS: Basophils Absolute Auto 0.1 10^3/uL (0.0-0.1); Basophils Percent Auto 0.7 % (0.2-2.0); Eosinophils Absolute Auto 0.1 10^3/uL (0.0-0.7); Eosinophils Percent Auto 1.7 % (0.9-7.0); Hematocrit 45.6 % (42.0-54.0); Hemoglobin 14.9 g/dL (14.0-18.0); Immature Granulocytes Abs Auto 0.02 10^3/uL (0.00-0.03); Immature Granulocytes Pct Auto 0.3 % (0.0-0.5); Lymphocytes Percent Auto 27.7 % (20.5-60.0); Mean Corpuscular HGB Conc 32.7 g/dL (29.9-35.2); Mean Corpuscular Hemoglobin 27.3 pg (25.9-34.0); Mean Corpuscular Volume 83.5 fL (80.0-94.0); Mean Platelet Volume 9.9 fL (9.5-13.5); Monocytes Absolute Auto 0.7 10^3/uL (0.3-0.8); Monocytes Percent Auto 9.7 % (1.7-12.0); Neutrophils Absolute Auto 4.3 10^3/uL (1.4-6.5); Neutrophils Percent Auto 59.9 % (43.0-75.0); Platelet Count 312 10^3/uL (150-450); Red Blood Count 5.46 10^6/uL (4.70-6.10); Red Cell Distribution Width 14.7 % (11.0-15.0); White Blood Count 7.1 10^3/uL (4.0-11.0)
[2024-05-04 08:46] LABS: Estimated Average Glucose 117 mg/dL; Glycohemoglobin A1C 5.7 % (4.5-6.2)
[2024-05-04 08:56] LABS: Alanine Aminotransferase 41 U/L (16-63); Alkaline Phosphatase 65 U/L (46-116); Anion Gap 13.6; Aspartate Amino Transferase 18 U/L (15-37); BUN Creatinine Ratio 14.8; Bilirubin Direct 0.1 mg/dL (0.0-0.2); Bilirubin Total 0.4 mg/dL (0.2-1.0); Calcium 9.7 mg/dL (8.5-10.1); Carbon Dioxide 27.9 mmol/L (21.0-32.0); Chloride 104 mmol/L (98-107); Chol HDL Ratio 5.7; Cholesterol 252 mg/dL (<=200); Estimated GFR (African America >60 (>=60 mL/min/1.73m^2); Estimated GFR (Non-African Ame >60 (>=60 mL/min/1.73m^2); Globulin 3.9 g/dL; Glucose 107 mg/dL (74-106); HDL Cholesterol 44 mg/dL (40-60); Potassium 4.5 mmol/L (3.5-5.1); Sodium 141 mmol/L (136-145); Thyroid Stimulating Hormone 1.092 uIU/mL (0.358-3.740); Total Protein 7.9 g/dL (6.4-8.2); Triglycerides 139 mg/dL (<=150); VLDL CHOLESTEROL 27.8 mg/dL
== END 2024-05-04 08:06 | disposition home or self-care (01) ==
PROVIDERS: PCP Family Medicine; Visit Provider Family Medicine
DX: Z00.00 Encounter for general adult medical examination without abnormal findings (principal)
CPT/HCPCS: 36415; 80048; 80061; 80076; 83036; 84443; 85025

== ENCOUNTER 2024-11-30 15:29 | Outpatient (OUT) | payer BC, SELFPAY ==
--- OUTSIDE RECORDS SUMMARY | 2024-05-04 08:03 | XMS_ITS ---
Author Name Auto Generated Organization [facility] Care Team Providers Care Customer Care Manager Name Role Phone SAM ROSAS Attending Unavailable Sam Rosas Primary Care Unavailable Jag Nolasco Attending Unavailable Jag Nolasco Admitting Unavailable PROBLEMS DATE TYPE CONDITION / CODE [facility] Unknown Male infertility , unspecified / N46.9(ICD-10) Jag Nolasco Active [facility] PROCEDURES No Procedure Records Found RESULTS SEMEN ANALYSIS, FERTILITY Collected: 02/19/2024 3:04 PM Status: F Source: [facility] Order Comment: Method of Col lection:: Masturbation Has the patient had a vasectomy?: N Type of Specimen Container:: Sterile Container Abstinence Period:: 2 DAYS Kept at body temperature?: Y Any Collection or Transport Problems?: N TYPE CODE TESTS RESULT OUT OF RANGE REFERENCE UNITS LAB SEMAPP Semen Appearance Normal Normal LAB SEMVOL Semen Volume 3.0 >=1.5 mL LAB SEMVIS Semen Viscosity Normal Normal LAB SPCT Sperm Concentration 65.0 >=15 LAB SEMWBCCON WBC Concent, Semen <1.0 <1.0 LAB SEMPH Semen pH 8.0 Normal >=7.2 LAB SPTOTMOBILE Total Motility (AR+ADVANCED MANUFACTURING ENGINEER) 57.0 >=40 (AR+ADVANCED MANUFACTURING ENGINEER) % LAB SPRAPPROG Rapid Progression Sperm Motili 49 % LAB SPNONPROG Non-Progression Sperm Motili 8 % LAB SPIMMOTILE Immotile Sperm 43 % LAB SPNORM Normal Sperm Morphology 10.0 >=4.0 % LAB SEMLIQ Semen Liquefaction Normal <=60 min LAB SEMDEBRISRC Debris/Round Cells None LAB SEMCOMM Semen Comment . Result Comment: No Abnormal specimen characteristics noted. PERFORMED BY: [place] [address] PATHOLOGIST FIELD TRAINING MANAGER PURVI SWEET M.D. Performed By: #### SEMCOMP # ### [address] ALLERGIES No Allergies Records Found ENCOUNTERS ADMIT/DISCHARGE ACCOUNT NUMBER ADMITTING ENCOUNTER CLASS LOCATION SOURCE 05/04/2024/05/05/19 [id number] Ambulatory Building:[facility] 02/19/2024/02/19/20 24 [id number] Jag Nolasco [facility] ENCOUNTER GUARANTOR PAYER SUBSCRIBER SOURCE 05/04/2024 BRITTANY GUALLPAJOSSIEB: [id number] [address]: () Primary Insurance:BCBSPoli cy Number: [id number] ctive Date:2024-03-02 BRITTANY ZIMMERMANB: [id number] [place], [place] [id number] [facility] 02/19/2024 Brittany Prabhakar [address]Tel: () Primary Insurance:Bao FU/BSPolicy Number: [id number] ruby Date:2024-02-09 Brittany GuallpamarquiseB: [id number] [place], [place] [address]Tel: (HP) [facility] 02/19/2024 Secondary Insurance:Self PayPolicy Number: Effective Date:2024-02-09 [facility]
--- OUTSIDE RECORDS SUMMARY | 2024-11-30 15:31 | XMS_ITS | Clinical Summary ---
Author Organization [facility] Healthcare Address [address] [place] [address] Care Team Providers Care Facilities Planner Name Role Phone Mehul Randhawa MD Primary Care Provider [phone] Mehul Randhawa MD Unavailable Allergies No known active allergies Medications cholecalciferol (Vitamin D-3) 50 MCG (1999) tabletIndications :Vitamin D deficiency TAKE 1 TABLET BY MOUTH EVERY DAY 90 tablet 5 4 Active fluticasone (Flonase) 50 MCG/ACT nasal spray Administer 2 sprays into each nostril in the morning. Shake gently. Before first use, prime pump. After use, clean tip and replace cap.. Active tiZANidine (Zanaflex) 4 MG tablet Take 4 mg by mouth every 6 (six) hours if needed 4 Active dicyclomine (Bentyl) 20 MG tabletIndications :Irritable bowel syndrome with diarrhea Take 1 tablet (20 mg) by mouth in the morning and 1 tablet (20 mg) at noon and 1 tablet (20 mg) in the evening and 1 tablet (20 mg) before bedtime. Take before meals. 120 tablet 5 5 Active lisinopril 20 MG tabletIndications :Essential (primary) hypertension,Gerard gn essential hypertension TAKE 1 TABLET BY MOUTH TWICE A DAY 180 tablet 3 5 Active omeprazole (PriLOSEC) [address] capsuleIndication s:Irritable bowel syndrome with diarrhea TAKE 1 CAPSULE BY MOUTH TWICE A DAY 180 capsule 3 5 Active Active Problems Problem Noted Date Diagnosed Date Prediabetes 05/04/2024 Banuelos's esophagus without dysplasia 05/18/2023 Assessment & Plan (11/04/2023 8:26 AM EDT): Symptoms controlled with omeprazole and continue. Essential hypertension, benign 05/18/2023 Assessment & Plan (05/04/2024 7:32 AM EST): BP controlled and monitor PRN. Assessment & Plan (11/04/2023 8:26 AM EDT): BP controlled and monitor PRN. Assessment & Plan (05/18/2023 3:17 PM EDT): BP controlled and monitor PRN. Chronic pain of both knees 05/18/2023 Seasonal allergic rhinitis due to pollen 024 Assessment & Plan (11/04/2023 8:27 AM EDT): Symptoms controlled with medication and continue. Dyslipidemia 05/18/2023 Irritable bowel syndrome with diarrhea Assessment & Plan (11/04/2023 8:27 AM EDT): Occasional symptoms and use bentyl PRN. Avoid foods that trigger symptoms. Obstructive sleep apnea 05/18/2023 Assessment & Plan (11/04/2023 8:27 AM EDT): Sleeping well with CPAP and continue nightly. The patient is benefiting from PAP therapy. Vitamin D deficiency 05/18/2023 Annual physical exam 05/18/2023 Assessment & Plan (05/04/2024 7:32 AM EST): Due for labs. Discussed proper diet and regular aerobic exercise. Need aerobic exercise 5-6 days a week for 30 minutes at a time. Smaller portions and limit total calories. Colonoscopy after age 45. Tetanus every 10 years. Advised not to smoke. Assessment & Plan (05/18/2023 3:17 PM EDT): Due for labs. Discussed proper diet and regular aerobic exercise. Need aerobic exercise 5-6 days a week for 30 minutes at a time. Smaller portions and limit total calories. Colonoscopy after age 45. Tetanus every 10 years. Advised not to smoke. Discussed daily Aspirin therapy. Encounter for screening for autism 05/18/2023 Resolved Problems Problem Noted Date Diagnosed Date Resolved Date Acute non-recurrent pansinusitis 05/18/2023 11/04/2023 Assessment & Plan (05/18/2023 3:18 PM EDT): Take antibiotics BID for 10 days. Use prednisone for inflammation. Use sudafed or other decongestants as needed. Use Robitussin or Robitussin-DM for cough. Can use afrin for congestion but no longer than 3 days. Can use Mucinex to bring up phlegm. Use Motrin or Tylenol as needed for fever, aches, or pains. Increase fluid intake and rest. Should improve over next 5-7 days and if no better or worse call for re-evaluation. Immunizations Immunization Administration Dates Next Due Influenza, injectable, MDCK, preservative free, quadrivalent 12/19/2022 Family History Medical History Relation Name Comments Hypertension Father Relation Name Status Comments Father Social History Tobacco Use Types Packs/Day Years Used Date Smoking Tobacco: Never Smokeless Tobacco: Never Tobacco Cessation:Counseling Given: Not Answered Social Connection and Isolat ion Panel [NHANES] Answer Date Recorded In a typical week, how many times do you talk on the phone with family, friends, or neighbors? Once a week 05/17/2023 How often do you get togethe r with friends or relatives? Twice a week 05/17/2023 How often do you attend [facility] or rastafarian services? More than 4 times per year 05/17/2023 Do you belong to any clubs o r organizations such as voodoo groups, unions, fraternal or athletic groups, or school groups? Yes 05/17/2023 How often do you attend meet ings of the clubs or organizations you belong to? More than 4 times per year 05/17/2023 Are you , , di vorced, , never , or living with a partner? 05/17/2023 AUDIT-C Answer Date Recorded Q1: How often do you have a drink containing alcohol? Never 05/17/2023 Q2: How many drinks containi ng alcohol do you have on a typical day when you are drinking? Patient does not drink Q3: How often do you have si x or more drinks on one occasion? Never 05/17/2023 Overall Financial Resource Strain (CARDIA) Answe r Date Recorded How hard is it for you to pa y for the very basics like food, housing, medical care, and heating? Not hard at all 05/17/2023 [employer] [facility] - Occupational Stress Questionnaire Answer Date Recorded Do you feel stress - tense, restless, nervous, or anxious, or unable to sleep at night because your mind is troubled all the time - these days? Only a little 05/17/2023 Exercise Vital Sign Answer Date Recorde d On average, how many days pe r week do you engage in moderate to strenuous exercise (like a brisk walk)? 3 days 05/17/2023 On average, how many minutes do you engage in exercise at this level? 40 min 05/17/2023 Hunger Vital Sign Answer Date Recorded Within the past 12 months, y ou worried that your food would run out before you got the money to buy more. Never true 05/17/19 24 Within the past 12 months, t he food you bought just didn't last and you didn't have money to get more. Never true 05/17/2023 PRAPARE - Transportation Answer Date Re corded In the past 12 months, has l ack of transportation kept you from medical appointments or from getting medications? No 04/30 In the past 12 months, has l ack of transportation kept you from meetings, work, or from getting things needed for daily living? No 05/17/2023 Housing Stability Vital Sign Answer Marvin e Recorded In the last 12 months, was t here a time when you were not able to pay the mortgage or rent on time? No 05/17/2023 In the last 12 months, how many places have you lived? 1 05/17/2023 In the last 12 months, was t here a time when you did not have a steady place to sleep or slept in a alf (including now)? No 05/17/2023 Sex and Gender Information Value Date Recorded Sex Assigned at Not on file Legal Sex Male 6:48 PM EDT Gender Identity Not on file Sexual Orientation Not on file Last Filed Vital Signs Vital Sign Reading Time Taken Comments Blood Pressure 134/78 05/04/2024 7:14 AM EST Pulse 105 05/04/2024 7:14 AM EST Temperature 36.4 C (97.5 F) 05/04/2024 7:14 AM EST Respiratory Rate 18 05/04/2024 7:14 AM EST Oxygen Saturation 97% 05/04/2024 7:14 AM EST Inhaled Oxygen Concentration - - Weight 117 kg (258 lb) 05/04/2024 7:14 AM EST Height 182.9 cm (6') 05/04/2024 7:14 AM EST Body Mass Index 34.99 05/04/2024 7:14 AM EST Plan of Treatment Health Maintenance Due Date Last Done Comments Influenza Vaccine (#1) 2024 , 12/19/2022, 12/19/2020, Additional history exists Insurance BS Care Teams Facilities Planner Relationship Specialty Start Date End Date Mehul Randhawa MD PCP - General Family Medicine 04/06/23 Mehul Randhawa MD [address] [place] [address] PCP - [place] [facility] 06/30/24
--- OUTSIDE RECORDS SUMMARY | 2024-11-30 15:31 | XMS_ITS | Clinical Summary ---
Author Organization [facility] Address [id number] [address] [place] [address] Care Team Providers Care Locomotive [employer] Name Role Phone Mehul Randhawa MD Primary Care Provider [phone] Allergies No known active allergies Medications omeprazole (PriLOSEC) 20 mg capsule TAKE 1 CAPSULE BY MOUTH 30 MINUTES before morning meal ONCE DAILY 08/10/2019 Active lisinopriL (PRINIVIL,ZESTR IL) 20 mg tablet Take 20 mg by mouth daily. Active cholecalciferol , vitamin D3, 2,000 units tablet Take by mouth daily. 05/03/2019 Active dicyclomine (BENTYL) 20 mg tablet Take by mouth 4 (four) times a day as needed. 05/03/2019 Active UNABLE TO FIND Take 180 mg by mouth every other day. Cayla Active melatonin (CIRCADIN) tablet Take 1 mg by mouth nightly. Active Active Problems No known active problems Immunizations Immunization Administration Dates Next Due Tdap 07/16/2016 Family History Medical History Relation Name Comments Hypertension Father Relation Name Status Comments Father Alive Mother Alive Social History Tobacco Use Types Packs/Day Years Used Date Smoking Tobacco: Never Smokeless Tobacco: Never Alcohol Use Standard Drinks/Week Comments Not Currently 0 (1 standard drink = 0.6 oz pur e alcohol) AUDIT-C Answer Date Recorded Q1: How often do you have a drink containing alc ohol? Never 08/24/2019 Average Number of Drinks Not on file 020 Frequency of Binge Drinking Not on file 08/01 Childcare Answer Date Recorded Childcare Unknown 08/11/2018 Employment Answer Date Recorded Employment Unknown 08/11/2018 Purpose - Life Answer Date Recorded Purpose and direction in life Unknown Sex and Gender Information Value Date Recorded Sex Assigned at Not on file Legal Sex Male 5:48 AM EDT Gender Identity Not on file Sexual Orientation Not on file Last Filed Vital Signs Vital Sign Reading Time Taken Comments Blood Pressure 108/72 10/04/2021 9:14 AM EDT Pulse 96 07/16/2016 5:55 AM EDT Temperature 36.5 C (97.7 F) 10/04/2021 9:14 AM EDT Respiratory Rate 18 07/16/2016 5:55 AM EDT Oxygen Saturation 100% 07/16/2016 8:09 AM EDT Inhaled Oxygen Concentration - - Weight 109.2 kg (240 lb 12.8 oz) 10/04/2021 9:14 AM EDT Height 182.9 cm (6') 10/04/2021 9:14 AM EDT Body Mass Index 32.66 10/04/2021 9:14 AM EDT Plan of Treatment Health Maintenance Due Date Last Done Comments Depression Screening 2002 Tobacco Screening 2002 Adult BMI Screening 2008 Colonoscopy 08/30/2024 08/31/2019 COVID-19 Vaccine (2 6 season) 2024 03/12/2021, 07/09/2020, 06/18/2020 Influenza Vaccine 10/31/2024 12/19/2020, 12/13/2018 DTaP,Tdap and Td Vaccines (7 - Td or Tdap) 07/16/2026 07/16/2016, 10/09/1995, 07/05/1992, Additional history exists Medical Devices Not on file Insurance Care Teams [employer]otive [employer] Relationship Specialty Start Date End Date Mehul Randhawa MD PCP - General Family Medicine 08/22/19
== END 2024-11-30 15:30 | disposition home or self-care (01) ==
LOC: SLEEP 15:29
PROVIDERS: PCP Family Medicine; Visit Provider Psychiatry & Neurology Neurology
DX: G47.33 Obstructive sleep apnea (adult) (pediatric) (principal)